=== PATIENT | female | born 1935 | race Hispanic/Latino ===

== ENCOUNTER 2017-11-19 10:01 | Inpatient (IN) | payer MEDICARE, BC ==
[2017-11-19 10:02] VITALS: BMI 42.9
--- NOTE | 2017-11-19 10:30 | ED PDOC ---
Arrival/HPI - General Chief Complaint: Weakness/Neurological Deficit Time Seen by Provider: 11/19/17 10:20 Historian: Patient - History of Present Illness Narrative History of Present Illness (Text): 11/19/17 10:20 A 82 year old female, whose past medical history includes 3-4 prior TIA and 1 cardiac stent, brought into the emergency department by EMS for right arm weakness since this morning. Patient reports she was awake watching TV at approximately 09:30 this morning when she felt mild weakness and numbness to her right distal forearm. Patient attempted to chicken picker an object from the floor but became alarmed when she was unable to. Upon arrival to the emergency room patient reported generalized weakness and lightheadedness. She notes taking 2 baby Aspirin priro to arrival. Patient denies any nausea, vomiting, diarrhea, abdominal pain, urinary or bowel changes, chest pain, palpitations shortness of breath, leg pain, headache, dizziness, speech changes, visual changes, hearing changes, taste abnormalities, facial numbness/tingling/weakness or any other complaints. pt is here for further eval pt's without other complaints Patients PMD is currently unknown. Patient use to be seen by Dr. Tony oliveira but he has not been in practice for some time now. Eeg Tech is Dr. Cabrera Patient is right hand dominant and lives alone Prior past medical history includes 3-4 TIA, 1 cardiac stent Time/Duration: Other (approximately 09:30 this morning) Symptom Onset: Sudden Symptom Course: Unchanged Activities at Onset: Rest Context: Home Past Medical History - Provider Review Nursing Documentation Reviewed: Yes - Travel History Have you recently traveled outside [place] w/in the past 3 mons?: No - Past History Past History: No Previous - Infectious Disease Hx of Infectious Diseases: None - Tetanus Immunization Tetanus Immunization: Unknown - Reproductive Menopause: Yes Currently : No - Cardiac Hx Cardiac Disorders: Yes (s/p stent) Hx Hypertension: Yes - Pulmonary Hx Respiratory Disorders: Yes Hx Pneumonia: Yes - Neurological HX Cerebrovascular Accident: Yes (x4) Hx Paralysis: No Hx Vertigo: Yes - HEENT Other/Comment: left eye infection last week - Renal Hx Renal Disorder: No - Endocrine/Metabolic Hx Endocrine Disorders: No - Hematological/Oncological Hx Blood Transfusions: No Hx Blood Transfusion Reaction: No - Integumentary Hx Dermatological Disorder: No - Musculoskeletal/Rheumatological Other/Comment: Dislocated hip 5x. Jacob knee and hip replacement - Gastrointestinal Hx Gastrointestinal Disorders: No - Genitourinary/Gynecological Hx Genitourinary Disorders: No - Psychiatric Hx Psychophysiologic Disorder: No Hx Substance Use: No - Surgical History Hx Coronary Stent: Yes Other/Comment: b/l hip replacement - Anesthesia Hx Anesthesia Reactions: Yes Hx Malignant Hyperthermia: No - Suicidal Assessment Feels Threatened In Home Enviroment: No Family/Social History - Physician Review Nursing Documentation Reviewed: Yes Family/Social History: No Known Family HX Smoking Status: Former Smoker Hx Alcohol Use: No Hx Substance Use: No Hx Substance Use Treatment: No Allergies/Home Meds Allergies/Adverse Reactions: Allergies morphine Allergy (Verified 11/19/17 10:08) ITCHING Home Medications: Home Meds Medication Instructions Recorded Confirmed Aspirin 325 mg PO DAILY 06/28/12 11/19/17 Metoprolol Succinate 25 mg PO BID 06/28/12 11/19/17 Simvastatin 40 mg PO DAILY 06/28/12 11/19/17 Meclizine HCl [Dramamine Less 25 mg PO DAILY 11/19/17 11/19/17 Drowsy] amLODIPine [Norvasc] 5 mg PO DAILY 11/19/17 11/19/17 Review of Systems - Physician Review All systems were reviewed & negative as marked: Yes - Review of Systems Constitutional: Other (generalized weakness) Eyes: absent: Vision Changes ENT: absent: Hearing Changes Respiratory: absent: SOB Cardiovascular: absent: Chest Pain, Palpitations, Calf Pain Gastrointestinal: absent: Abdominal Pain, Diarrhea, Nausea, Vomiting Genitourinary Female: absent: Urine Output Changes Musculoskeletal: absent: Normal Skin: absent: Normal Neurological: Other (right distal forearm weakness/numbness, lightheadedness). absent: Headache, Dizziness, Speech Changes, Facial Droop Endocrine: absent: Normal Hemo/Lymphatic: absent: Normal Psychiatric: absent: Normal Physical Exam - Physical Exam Narrative Physical Exam (Text): 11/19/17 12:04 General: alert/awake, GCS = 15, oriented x 3, resting in bed, +comfortable, cooperative, interactive; NAD Head: NC/AT EYE: PERRLA, EOMI, sclera anicteric, no nystagmus, no photophobia Facial: WNL Oral: uvula/tongue are midline, no exudate/lesions, no drooling/stridor, no dysphonia; intact dentitions NECK: intact ROM, no midline tenderness, no nuchal rigidity, no meningeal signs ; no step off Chest: CTA b/l, no w/r/r; no tachypenia, no accessory muscle use noted Cardiac: +S1, +S2, no m/r/r, no tachycardia Abdominal: +BS, soft/nd/nt, well nourished/obese patient; no masses/rebound/ guarding/rigidity; no reddy's sign, no mcburney's point tenderness Extremities: intact ROM, strength 5/5 grossly intact in all limbs except weaker on right distal arm (5-/5), neurovasc intact b/l; + ambulatory; reflex +2/2 BACK: no step off, no midline tenderness, NO crepitus, no gross deformities noted; Intact ROM SKIN: cap refill < 1 sec, no ulcerations, no petechiae, no rashes NEURO: CNII-XII WNL, no facial asymmetries, no slurr speech, oriented x 3 NIH stroke scale ~ 1 Psych: normal insight, normal affect; follows command with ease Vital Signs Reviewed: Yes Temperature: Afebrile Blood Pressure: Normal Pulse: Regular Respiratory Rate: Normal Appearance: Positive for: Well-Appearing, Non-Toxic, Comfortable. No: Ill- Appearing Pain Distress: None Mental Status: Positive for: Alert and Oriented X 3 - Systems Exam Head: Present: Atraumatic, Normocephalic Medical Decision Making ED Course and Treatment: 11/19/17 10:20 Impression: A 82 year old female brought in for right distal forearm weakness and numbness. Patient notes generalized weakness and lightheadedness. Hx of multiple TIAs R/O TIA vs CVA Plan: -- Head CTA -- Head CT -- Chest xray -- EKG -- Labs -- IV fluids -- Reassess and disposition Progress Notes: Code alert activated at 10:16 11/19/17 10:28 Case discussed with neurologist Dr. Cisneros; made aware, would like to follow up on the Ct head results; due to pt's low NIH stroke score level and isolated weakness, pt likely is NOT a candidate for tPA, as per Dr Cisneros, will continue to monitor 11:20am - with negative CT head, pt's symptoms appears to be slightly improving 11:30am - I spoke to Dr Cisneros, made aware of pt's ct results and with her improving right arm symptoms, PT IS NOT A CANDIDATE for tPA at the current time. Dr Cisneros recommends plavix 300mg x 1, permissive Hypertension, and NS IVF at 100cc/hr, MRI as well 11:45am - I spoke to Dr Elliott, guest relations associate PCP, made aware, agrees with admission 11/19/17 1150am pt is made aware of her medical results pt agrees with admission Re-evaluation Time: 11:36 Reassessment Condition: Improving,but remains with symptoms - Critical Care Critical Care Minutes: 45 minutes Critical Care Time: Excluding Proc Time Narrative Critical Care (Text): 11/19/17 11:36 critical care time: 45min, excluding procedure time, excluding time teaching residents/students/mid-level providers; including initial eval/diagnosis, diagnostic interpretation, re-eval, consultations, final disposition - Lab Interpretations Lab Results: 11/19/17 10:24 11/19/17 10:24 Lab Results 11/19/17 10:24: Sodium 141, Potassium 4.7, Chloride 108 H, Carbon Dioxide 22, Anion Gap 16, BUN 18, Creatinine 0.8, Est GFR ( Amer) > 60, Est GFR (Non- Af Amer) > 60, Random Glucose 116 H, Calcium 9.1, Total Bilirubin 0.6, AST 18, ALT 20, Alkaline Phosphatase 77, Troponin I < 0.01, Total Protein 7.0, Albumin 3.9, Globulin 3.1, Albumin/Globulin Ratio 1.3, Triglycerides 130, Cholesterol 153, LDL Cholesterol Direct 69, HDL Cholesterol 61 H 11/19/17 10:24: WBC 9.5, RBC 4.55, Hgb 13.1, Hct 39.9, MCV 87.7, MCH 28.8, MCHC 32.8, RDW 14.5, Plt Count 225, MPV 9.6, Gran % 64.5, Lymph % (Auto) 22.0, Mcminn % (Auto) 10.4 H, Eos % (Auto) 2.8, Baso % (Auto) 0.3, Gran # 6.10, Lymph # (Auto ) 2.1, [place]minn # (Auto) 1.0 H, Eos # (Auto) 0.3, Baso # (Auto) 0.03 I have reviewed the lab results: Yes Interpretation: All labs normal - RAD Interpretation Narrative RAD Interpretations (Text): Report Date : 11/19/2017 11:01:19 PROCEDURE: CT HEAD WITHOUT CONTRAST. Dictator : Dimitrios Rojo MD IMPRESSION: No acute findings Report Date : 11/19/2017 11:08:56 Dictator : Dimitrios Rojo MD PROCEDURE: CT Angiography of the neck with contrast IMPRESSION: No significant stenosis. Tortuosity of the internal carotid. Minimal calcified plaque bilaterally PROCEDURE: CT Angiography of the Brain. IMPRESSION: Unremarkable CT Angiography of the Brain. Report Date : 11/19/2017 11:10:02 PROCEDURE: Chest xray Dictator : Dimitrios Rojo MD IMPRESSION: No active disease. Radiology Orders: 11/19/17 10:21 CTA HEAD/NECK CODE STROKE [CT] Stat HEAD W/O (CODE STROKE) [CT] Stat CHEST PORTABLE [RAD] Stat Scientologist: Radiologist - EKG Interpretation EKG Interpretation (Text): 11/19/17 11:38 Sinus margo at 55 bpm, LAD, + ectoy, inverted T In leads III, no st changes, ABNL EKG; unchanged compare with old ekg 09/2014 Interpreted by ED Physician: Yes Type: 12 lead EKG Comparison: Similar to previous EKG - Medication Orders Current Medication Orders: Sodium Chloride (Sodium Chloride 0.9%) 1,000 mls @ 100 mls/hr IV .Q10H MARKIE Discontinued Medications Clopidogrel Bisulfate (Plavix) 300 mg PO STAT STA Stop: 11/19/17 11:36 NIHSS Scale (Goodwin) Time Performed: 10:15 - How Severe is the Stoke Baseline Level of Consciousness: 0=Alert LOC to Questions: 0=Both comments correct LOC to commands: 0=Obeys both correctly Best Gaze: 0=Normal Visual: 0=No visual loss Facial: 0=Normal Motor Arm - Left: 0=No drift Motor Arm - Right: 1=Drift noted before 10 sec Motor Leg - Left: 0=No drift Motor Leg - Right: 0=No drift Limb Ataxia: 0=Absent Sensory: 0=Normal Best Language: 0=No aphasia Dysarthia: 0=Normal articulation Extinction & Inattention (Neglect): 0=Normal, no object Score: 1 Risk Level: Minor Stroke Risk - Scribe Statement The provider has reviewed the documentation as recorded by the Hermannibsparkle Smith Provider Scribe Attestation: All medical record entries made by the Scribe were at my direction and personally dictated by me. I have reviewed the chart and agree that the record accurately reflects my personal performance of the history, physical exam, medical decision making, and the department course for this patient. I have also personally directed, reviewed, and agree with the discharge instructions and disposition. Disposition/Present on Arrival - Present on Arrival Any Indicators Present on Arrival: No History of DVT/PE: No History of Uncontrolled Diabetes: No Urinary Catheter: No History of Decub. Ulcer: No History Surgical Site Infection Following: None - Disposition Have Diagnosis and Disposition been Completed?: Yes Diagnosis: Right arm weakness, TIA (transient ischemic attack) Disposition: HOSPITALIZED Disposition Time: 11:45 Patient Plan: Admission, Telemetry Condition: STABLE Forms: [employer] (Spanish)
[2017-11-19 10:36] LABS: BASO # 0.03 K/mm3 (0.0-2.0); BASO % 0.3 % (0.0-3.0); EOS # 0.3 (0.0-0.7); EOS % 2.8 % (1.5-5.0); GRAN # 6.1 (1.4-6.5); GRAN % 64.5 % (50.0-68.0); HEMOGLOBIN 13.1 g/dL (12.0-16.0); LYMPH # 2.1 (1.2-3.4); MEAN CELL VOLUME 87.7 fl (80.0-105.0); MEAN CORPUSCULAR HEMOGLOBIN 28.8 pg (25.0-35.0); MEAN CORPUSCULAR HGB CONC 32.8 g/dl (31.0-37.0); MEAN PLATELET VOLUME 9.6 fl (7.0-11.0); MONO % 10.4 % (1.0-6.0); RBC 4.55 10^6/uL (3.5-6.1); RED CELL DISTRIBUTION WIDTH 14.5 % (11.5-14.5); WHITE BLOOD COUNT 9.5 10^3/ul (4.5-11.0)
--- NOTE | 2017-11-19 10:42 | CP.PCM.CON ---
<Kate Gabriel - Last Filed: 11/19/17 15:11> History of Present Illness - History of Present Illness History of Present Illness: Neuro Consult Note for Dr. Cisneros Reason for consult: "right arm weakness r/o TIA vs CVA" 82yo female PMHx CAD with stent, CVA 3 years ago and multiple TIAs, HTN, and HLD presents with right hand numbness and decreased strength for 3-4 hours. Patient reports she woke up on the morning of presentation and was having lower back pain and decided against going to physical therapy that day. (Patient goes to PT 3x/week for back pain). She reported she placed a heating pad on her back and sat down to watch TV but when she felt mild weakness and numbness to her right distal forearm. Patient attempted to berry picker an object from the floor but was alarmed when she was unable to. Upon arrival to the emergency room patient reported generalized weakness and lightheadedness. She notes taking 2 baby Aspirin prior to arrival. She reported that even in the ER although her weakness had improved she still felt like she had decreased strength and that her hand wasn't right. She admitted to some lightheadedness at the time of the event but denied any headache, dizziness, chest pain, palpitations, SOB, cough, abd pain, nausea, vomiting, bowel/bladder complaints, pain/swelling in her legs b/l. She denied any recent travel/sick contacts. PMHx: CVA and multiple TIAs, HTN, CAD with stent, HLD PSurgHx: b/l knee replacement, b/l hip replacement, meniscus repair, elbow surgery, cardiac stent 6-8 years ago Meds: pls see chart ALL: morphine FamHx: father renal cell ca; no hx of CVA or OR SocHx: lives alone- denies hx of tobacco abuse, drug abuse, alcohol abuse PMD: Dr. Pat [last seen 2 years [facility]] Neurologist: none Structural Engineer: Dr. Cabrera Review of Systems - Review of Systems All systems: reviewed and no additional remarkable complaints except Review of Systems: as per HPI Past Patient History - Tetanus Immunizations Tetanus Immunization: Unknown - Past Social History Smoking Status: Former Smoker - CARDIAC Hx Cardiac Disorders: Yes (s/p stent) Hx Hypertension: Yes - PULMONARY Hx Respiratory Disorders: Yes Hx Pneumonia: Yes - NEUROLOGICAL HX Cerebrovascular Accident: Yes (x4) Hx Paralysis: No Hx Vertigo: Yes - HEENT Other/Comment: left eye infection last week - RENAL Hx Chronic Kidney Disease: No - ENDOCRINE/METABOLIC Hx Endocrine Disorders: No - HEMATOLOGICAL/ONCOLOGICAL Hx Blood Transfusions: No Hx Blood Transfusion Reaction: No - INTEGUMENTARY Hx Dermatological Problems: No - MUSCULOSKELETAL/RHEUMATOLOGICAL Other/Comment: Dislocated hip 5x. Jacob knee and hip replacement - GASTROINTESTINAL Hx Gastrointestinal Disorders: No - GENITOURINARY/GYNECOLOGICAL Hx Genitourinary Disorders: No - PSYCHIATRIC Hx Psychophysiologic Disorder: No Hx Substance Use: No - SURGICAL HISTORY Hx Coronary Stent: Yes Other/Comment: b/l hip replacement - ANESTHESIA Hx Anesthesia Reactions: Yes Hx Malignant Hyperthermia: No Meds Allergies/Adverse Reactions: Allergies Allergy/AdvReac Type Severity Reaction Status Date / Time morphine Allergy ITCHING Verified 11/19/17 10:08 - Medications Medications: Current Medications Sodium Chloride (Sodium Chloride 0.9%) 1,000 mls @ 100 mls/hr IV .Q10H MARKIE Physical Exam - Constitutional Appears: Non-toxic, No Acute Distress - Head Exam Head Exam: ATRAUMATIC, NORMAL INSPECTION, NORMOCEPHALIC - Eye Exam Eye Exam: EOMI, Normal appearance, PERRL. absent: Conjunctival injection, Scleral icterus Pupil Exam: NORMAL ACCOMODATION - ENT Exam ENT Exam: Mucous Membranes Moist - Neck Exam Neck exam: Positive for: Full Rom - Respiratory Exam Respiratory Exam: NORMAL BREATHING PATTERN. absent: Accessory Muscle Use, Respiratory Distress - Cardiovascular Exam Cardiovascular Exam: +S1, +S2 - Rectal Exam Rectal Exam: Deferred - Extremities Exam Extremities exam: Positive for: pedal edema (+1 b/l) - Neurological Exam Neurological exam: Alert, CN II-XII Intact, Oriented x3 - Expanded Neurological Exam Expanded Neurological exam: Protecting the Airway Speech: Fluid Speech Cranial nerves: EOM's Intact: Normal, Facial Palsey w/Forehead Movement: Normal , Facial Palsey w/o Forehead Movement: Normal, Facial Sensation: Normal, Gag Reflex: Normal, Nystagmus: Normal, Tongue Deviation: Normal Ataxia: No Cerebellar Function: Finger to Nose: Normal Upper motor neuron: Babinski Sign: Normal, Dylan Neglect: Normal, Pronator Drift : Normal, Sensory Extinction: Normal Neuro motor strength exam: Left Upper Extremity: 5, Right Upper Extremity: 5, Left Lower Extremity: 5, Right Lower Extremity: 5 Coma Scale Eye Opening: SPONTANEOUS Coma Scale Motor Response: OBEYS COMMANDS Coma Scale Verbal: Oriented Coma Scale Total: 15 - Psychiatric Exam Psychiatric exam: Normal Affect, Normal Mood - Skin Skin Exam: Dry, Intact Results - Labs Result Diagrams: 11/19/17 10:24 11/19/17 10:24 Labs: Laboratory Results - last 24 hr 11/19/17 10:24 WBC 9.5 RBC 4.55 Hgb 13.1 Hct 39.9 MCV 87.7 MCH 28.8 MCHC 32.8 RDW 14.5 Plt Count 225 MPV 9.6 Gran % 64.5 Lymph % (Auto) 22.0 [place] % (Auto) 10.4 H Eos % (Auto) 2.8 Baso % (Auto) 0.3 Gran # 6.10 Lymph # (Auto) 2.1 [place] # (Auto) 1.0 H Eos # (Auto) 0.3 Baso # (Auto) 0.03 Assessment & Plan - Assessment and Plan (Free Text) Assessment: 82yo female PMHx CAD with stent, CVA 3 years ago and multiple TIAs, HTN, and HLD presents with right hand numbness and decreased strength for 3-4 hours. Plan: -f/u MRI brain -f/u Echo with bubble -Head CT: unremarkable -CTA head/neck: unremarkable -ASA 81 and Plavix 75 for 21 days after which patient will be on only Plavix 75mg qdaily -PT/OT -continue management as per primary Discussed with Dr. Blayne Gabriel PGY2 <Robert Cisneros - Last Filed: 11/19/17 17:07> Meds - Medications Medications: Current Medications Amlodipine Besylate (Norvasc) 5 mg PO DAILY MARKIE Aspirin (Aspirin Chewable) 81 mg PO DAILY MARKIE Atorvastatin Calcium (Lipitor) 40 mg PO HS MARKIE Clopidogrel Bisulfate (Plavix) 75 mg PO DAILY [facility] Sodium Chloride (Sodium Chloride 0.9%) 1,000 mls @ 100 mls/hr IV .Q10H MARKIE Last Admin: 11/19/17 15:04 Dose: 100 mls/hr Metoprolol Tartrate (Lopressor) 25 mg PO BID [facility] Results - Vital Signs Recent Vital Signs: Last Vital Signs Temp 98 F 11/19/17 15:54 Pulse 50 L 11/19/17 15:54 Resp 18 11/19/17 15:54 BP 148/79 11/19/17 15:54 Pulse Ox 96 11/19/17 15:36 - Labs Result Diagrams: 11/19/17 10:24 11/19/17 10:24 Labs: Laboratory Results - last 24 hr 11/19/17 11/19/17 11/19/17 12:00 12:30 13:58 PT 11.5 INR 1.00 APTT 28.0 Thyroxine (T4) 10.3 Blood Type B POSITIVE Antibody Screen Negative BBK History Checked No verified bt Attending/Attestation - Attestation I have personally seen and examined this patient.: Yes I have fully participated in the care of the patient.: Yes I have reviewed all pertinent clinical information: Yes
[2017-11-19 10:44] LABS: ALB/GLOB RATIO 1.3 (1.1-1.8); ALBUMIN 3.9 g/dL (3.0-4.8); CALCIUM 9.1 mg/dL (8.4-10.5); GFR AFRICAN-AMERICAN > 60; GFR NON-AFRICAN AMERICAN > 60; HDL CHOLESTEROL 61 mg/dL (29-60)
[2017-11-19 10:49] LABS: ALT/SGPT 20 U/L (7-56); AST/SGOT 18 U/L (14-36); BLOOD UREA NITROGEN 18 mg/dL (7-21)
[2017-11-19 10:55] LABS: TROPONIN I < 0.01 ng/mL
[2017-11-19 10:56] LABS: LDL CHOLESTEROL 69 mg/dL (0-129)
--- NOTE | 2017-11-19 11:03 | CT ---
PROCEDURE: CT HEAD WITHOUT CONTRAST. HISTORY: Code Stroke COMPARISON: None available. TECHNIQUE: Axial computed tomography images were obtained through the head/brain without intravenous contrast. Radiation dose: Total exam DLP = 889 mGy-cm. This CT exam was performed using one or more of the following dose reduction techniques: Automated exposure control, adjustment of the mA and/or kV according to patient size, and/or use of iterative reconstruction technique. FINDINGS: HEMORRHAGE: No intracranial hemorrhage. BRAIN: No mass effect or edema. Chronic microvascular changes are seen in the periventricular white matter. There are no acute findings VENTRICLES: Unremarkable. No hydrocephalus. CALVARIUM: Unremarkable. PARANASAL SINUSES: Unremarkable as visualized. No significant inflammatory changes. MASTOID AIR CELLS: Unremarkable as visualized. No inflammatory changes. OTHER FINDINGS: None. IMPRESSION: No acute findings
--- NOTE | 2017-11-19 11:10 | CT ---
PROCEDURE: CT Angiography of the neck with contrast HISTORY: right arm weakness since 930am COMPARISON: Noncontrast head CT earlier same day TECHNIQUE: Contiguous axial images of the neck were obtained from the level of the skull-base to the superior mediastinum in the arteriographic phase of enhancement. Coronal and sagittal reformats or also generated. IV contrast dose: 150 cc of Omni 350 Radiation Dose - DLP: 615 mGy-cm This CT exam was performed using one or more of the following dose reduction techniques: Automated exposure control, adjustment of the mA and/or kV according to patient size, and/or use of iterative reconstruction technique. FINDINGS: RIGHT CAROTID ARTERIES: There is tortuosity of the internal carotid. There is no significant stenosis. Minimal calcified plaque LEFT CAROTID ARTERIES: No significant stenosis. Tortuosity of the internal carotid. Minimal calcified plaque VERTEBRAL ARTERIES: Right Vertebral Artery: Normal. Left Vertebral Artery: Normal. OTHER FINDINGS: None. IMPRESSION: No significant stenosis. Tortuosity of the internal carotid. Minimal calcified plaque bilaterally CT Angiography of the Brain. HISTORY: right arm weakness since 930am COMPARISON: None available. TECHNIQUE: CT angiography of the intracranial arteries was performed. Coronal and sagittal maximum intensity projection reformated images were generated. This CT exam was performed using one or more of the following dose reduction techniques: Automated exposure control, adjustment of the mA and/or kV according to patient size, and/or use of iterative reconstruction technique. FINDINGS: INTERNAL CEREBRAL ARTERIES: Unremarkable. The skull base, petrous, cavernous and supraclinoid segments are bilaterally widely patent. ANTERIOR CEREBRAL ARTERIES: Unremarkable. A1 and A2 segments are widely patent. Smaller distal branches unremarkable, as visualized. MIDDLE CEREBRAL ARTERIES: Unremarkable. M1 and M2 segments are widely patent. Perisylvian branches grossly symmetric. POSTERIOR CIRCULATION: Basilar Artery: Unremarkable. Distal Vertebral Arteries: Unremarkable. Posterior Cerebral Arteries: Unremarkable. Posterior Inferior Cerebellar Arteries: Unremarkable. ANEURYSM/ VASCULAR MALFORMATIONS: None. OTHER FINDINGS: None. IMPRESSION: Unremarkable CT Angiography of the Brain.
--- NOTE | 2017-11-19 11:11 | RAD ---
HISTORY: Code Stroke COMPARISON: 10/12/2014 FINDINGS: LUNGS: No active pulmonary disease. PLEURA: No significant pleural effusion identified, no pneumothorax apparent. CARDIOVASCULAR: Normal. OSSEOUS STRUCTURES: No significant abnormalities. VISUALIZED UPPER ABDOMEN: Normal. OTHER FINDINGS: None. IMPRESSION: No active disease.
[2017-11-19 12:26] LABS: PROTHROMBIN TIME 11.5 SECONDS (9.4-12.5)
[2017-11-19] MEDS: Sodium Chloride 0.9% 1,000 ML IV SCH ×2 (15:04→21:30)
--- NOTE | 2017-11-19 15:57 | CARD ---
APPROVED REPORT EXAM: Two-dimensional and M-mode echocardiogram with Doppler and color Doppler. INDICATION CVA/TIA BUBBLE STUDY TO R/O PFO 2D DIMENSIONS Left Atrium (2D)4.9 (1.6-4.0cm)IVSd1.2 (0.7-1.1cm) LVDd4.5 (3.9-5.9cm)PWd1.1 (0.7-1.1cm) LVDs3.0 (2.5-4.0cm)FS (%) 33.7 % LVEF (%)62.6 (>50%) M-Mode DIMENSIONS Aortic Root3.30 (2.2-3.7cm)Aortic Cusp Exc.1.80 (1.5-2.0cm) Aortic Valve AoV Peak Qwhbmdfe679.0cm/sAoV VTI42.5cmAO Peak GR.13mmHg LVOT Peak Mkwbsbao813.0cm/sLVOT VTI37.90cmAO Mean GR.7mmHg Mitral Valve MV E Ajelltia34.5cm/sMV A Yeeijgff02.3cm/sE/A ratio0.8 TDI Lateral E' Peak V8.77cm/sMedial E' Peak V6.92cm/sE/Lateral E'8.8 E/Medial E'11.2 Pulmonary Valve PV Peak Jpnmrhhz54.4cm/sPV Peak Grad.3mmHg Tricuspid Valve TR Peak Wzjaucmj993fc/sRAP BLDAOVMN80opUnCC Peak Gr.34mmHg [id number] LEFT VENTRICLE The left ventricle is normal size. There is normal left ventricular wall thickness. The left ventricular function is normal. The left ventricular ejection fraction is within the normal range. There is normal LV segmental wall motion. Transmitral Doppler flow pattern is Grade I-abnormal relaxation pattern. RIGHT VENTRICLE The right ventricle is normal size. There is normal right ventricular wall thickness. The right ventricular systolic function is normal. ATRIA The left atrium is mildly dilated. The right atrium size is normal. a small PFO noted on color doppler images AORTIC VALVE The aortic valve is moderately thickened. No aortic regurgitation is present. MITRAL VALVE The mitral valve is mildly thickened. Mitral regurgitation is trace. There is no mitral valve stenosis. TRICUSPID VALVE There is mild to moderate tricuspid regurgitation. There is mild to moderate pulmonary hypertension. GREAT VESSELS The aortic root is normal in size. PERICARDIAL EFFUSION There is a trace loculated anterior pericardial effusion. <Conclusion> The left ventricle is normal size. There is normal left ventricular wall thickness. The left ventricular function is normal. The left ventricular ejection fraction is within the normal range. There is normal LV segmental wall motion. Transmitral Doppler flow pattern is Grade I-abnormal relaxation pattern. There is mild to moderate tricuspid regurgitation. There is mild to moderate pulmonary hypertension. a small PFO noted on color doppler images
[2017-11-19] MEDS ORDERED: Pneumococcal 23-Valent Vaccine IM ONE (16:30)
--- NOTE | 2017-11-19 18:54 | CARD ---
APPROVED REPORT EKG Measurement Heart [id number] <Conclusion> Sinus bradycardia with marked sinus arrhythmia Left axis deviation Abnormal ECG
--- NOTE | 2017-11-20 01:27 | HP ---
DATE OF EXAM: 11/19/2017 HISTORY OF PRESENT ILLNESS: This 82-year-old female was examined at her bedside in the emergency room and this case was reviewed in detail with herself and emergency room physician, Dr. Basil Brown. The patient presented earlier today complaining of a right forearm and hand numbness and weakness. She was watching TV, she went to pick up man an item, she was unable to grasp it completely and immediately swallowed 2 baby aspirins after having taken her Ecotrin 325 mg earlier in the morning. She presented to the [facility] ER where concerns of a TIA versus CVA were raised. She underwent workup including chest x-ray, EKG, head CT and head and neck CTA, all unremarkable for evidence of acute stroke. Chest x-ray showed no obvious pneumonia, infiltrate or congestive heart failure and her electrocardiogram was reviewed and showed sinus arrhythmia with nonspecific ST-T wave changes. The patient is being admitted for complaints of the above. OUTPATIENT MEDICATIONS: Included Norvasc, Zocor, metoprolol and aspirin. ALLERGIES: PATIENT DENIES ALLERGIES TO MEDICATION EXCEPT FOR MORPHINE, WHICH CAUSES HIVES. PAST SURGICAL HISTORY: She is status post hip and knee surgeries and has a cardiac stent. FAMILY HISTORY: Noncontributory. SOCIAL HISTORY: She admits to being a three pack per day cigarette smoker for over 20 years, but denies alcohol abuse nor IV drug misuse or abuse. She is a retired clerical worker. PHYSICAL EXAMINATION: VITAL SIGNS: She was in a normal sinus rhythm on the hall monitor. Temperature 98, respirations 18, pulse 53 and blood pressure 148/79 with a pulse ox of 97% on room air. HEENT: Head, normocephalic and atraumatic. Eyes, no icterus. Ears, clear. Throat, noninjected. NECK: Supple. HEART: Was regular S1, S2. No pathological rubs, murmurs or gallops. LUNGS: Were clear to auscultation. ABDOMEN: Soft, nontender without rebound without guarding. No tenderness. EXTREMITIES: She had 1+ pedal edema bilaterally. SKIN: Without ulcer. VASCULAR: Legs warm to touch. PSYCHOLOGIC: Alert and oriented x3. NEUROLOGIC: At presently, motor strength is 5/5 throughout including her right hand program lead and right arm motor strength exam. LABORATORY DATA: White count 9500, hemoglobin 13.1, hematocrit 39.9, platelets 225,000. PT/INR 1, PTT 28. Sodium 141, K 4.7, chloride 108, bicarb 22, BUN 18, creatinine 0.8, random blood sugar 116. Hemoglobin A1c 6.4. All liver function testing normal including bilirubin 0.6, AST 18, ALT 20 and alk phos 77. Troponin was less than 0.01. Cholesterol 153, LDL 69, HDL 61 and triglycerides 130. T4 of 10.3, normal. Chest x-ray was reviewed, no infiltrate, no CHF, no effusion, no pneumothorax. EKG was reviewed, normal sinus rhythm with sinus arrhythmia and nonspecific ST-T wave changes. Head CT was reviewed, no evidence of acute stroke or intracranial hemorrhage. Head and neck CTA was reviewed, it showed no evidence of carotid artery stenosis. IMPRESSION: An 82-year-old female with recurrent transient ischemic attack with history of old transient ischemic attack in the past, chronic hypertension, obesity, hyperlipidemia and coronary artery stenting. PLAN: The plan at present is to admit this patient to the cardiac unit. I have ordered an echocardiogram with bubble study to evaluate cardiac wall motion, cardiac valve status and to rule out intracardiac septal deformity. She will be scheduled for an MRI of the brain without contrast and is awaiting a neurological consultation by Dr. Robert Cisneros, neurologist. The patient will be ordered to receive Lipitor 40 mg p.o. at bedtime, Lopressor 25 mg p.o. b.i.d., Norvasc 5 mg p.o. daily, Plavix 75 mg p.o. daily and 0.9 saline at 100 mL per hour for the next 10 hours. She has been placed on a heart-healthy soft bland diet. She will have Neuro checks every shift. She is ordered to have physical therapy for reconditioning and gait training, and additional testing and medications will be ordered based on her clinical progress and results of the above. Greater than 75 minutes was spent in the care management, review of labs, orders and x-rays, examination and discussion of this patient's case with herself, nursing, emergency room physician and cardiac unit nurses. All questions were answered. Shayla Elliott MD [facility] # [id number] MTDD
[2017-11-20] MEDS ORDERED: DiphenhydrAMINE 12.5 mg/5 ml LIQ UD (5 ml) PO STA (02:19)
--- NOTE | 2017-11-20 02:24 | CP.PCM.PN ---
Subjective - Date & Time of Evaluation Date of Evaluation: 11/20/17 Time of Evaluation: 02:20 - Subjective Subjective: S:Requests a sleeping pill. Has no other complaints now. Medical record was reviewed. O: Last Vital Signs 3 Temp 97.8 F 11/20/17 00:00 Pulse 52 L 11/20/17 00:00 Resp 20 11/20/17 00:00 BP 142/99 H 11/20/17 00:05 Pulse Ox 96 11/20/17 00:00 Awake, alert , not in distress. LUNGS:Normal breathing pattern. NEURO:Speech normal. A:Adjustment Insomnia. P:Benadryl 25 mg PO x 1. Objective - Vital Signs/Intake and Output Vital Signs (last 24 hours): Temp Pulse Resp BP Pulse Ox 97.8 F 52 L 20 142/99 H 96 11/20/17 00:00 11/20/17 00:00 11/20/17 00:00 11/20/17 00:05 11/20/17 00:00 - Medications Medications: Current Medications Amlodipine Besylate (Norvasc) 5 mg PO DAILY [facility] Aspirin (Aspirin Chewable) 81 mg PO DAILY [facility] Atorvastatin Calcium (Lipitor) 40 mg PO HS [facility] Last Admin: 11/19/17 21:26 Dose: 40 mg Clopidogrel Bisulfate (Plavix) 75 mg PO DAILY [facility] Diazepam (Valium) 2 mg PO ONCE PRN; Protocol PRN Reason: Anxiety Stop: 11/20/17 23:59 Sodium Chloride (Sodium Chloride 0.9%) 1,000 mls @ 100 mls/hr IV .Q10H [facility] Last Admin: 11/19/17 21:30 Dose: Not Given Metoprolol Tartrate (Lopressor) 25 mg PO BID [facility] Last Admin: 11/19/17 18:28 Dose: Not Given - Labs Labs: PT 11.5 SECONDS (9.4-12.5) 11/19/17 12:00 INR 1.00 (0.93-1.08) 11/19/17 12:00 APTT 28.0 Seconds (25.1-36.5) 11/19/17 12:00
[2017-11-20 07:34] LABS: HDL CHOLESTEROL 65 mg/dL (29-60)
[2017-11-20 07:45] LABS: LDL CHOLESTEROL 73 mg/dL (0-129)
[2017-11-20] MEDS ORDERED: Aspirin 325 mg EC Tablets PO SCH (10:00)
[2017-11-20] MEDS: Sodium Chloride 0.9% 1,000 ML IV SCH ×2 (10:48→18:35)
--- NOTE | 2017-11-20 14:07 | MRI ---
PROCEDURE: MRI BRAIN WITHOUT CONTRAST HISTORY: TIA COMPARISON: Comparison made with CT scan and CTA brain both dated 11/19/2017 TECHNIQUE: Multiplanar, multisequence MR images of the brain were obtained without intravenous contrast enhancement. FINDINGS: HEMORRHAGE: No acute parenchymal, subarachnoid nor extra-axial hemorrhage. No evidence of hemosiderin deposition identified on gradient echo weighted sequence. DWI: There are several tiny focal areas of restricted diffusion seen along the left pre and post central cortex consistent with tiny acute/subacute infarcts. BRAIN PARENCHYMA: Moderate diffuse and confluent chronic periventricular white matter ischemic changes seen extending peripherally into the deep and subcortical white matter both cerebral hemispheres. In addition, there are the multiple more discrete chronic appearing lacunar type infarcts scattered about the deep and subcortical white matter and both basal nuclei. None these additional changes exhibit restricted diffusion. No obvious parenchymal nor extra-axial mass or collection seen on this noncontrast study. The mild to moderate generalized volume loss. VENTRICLES: No obstructive hydrocephalus. CRANIUM: No acute calvarial abnormalities ORBITS: Orbits and contents grossly unremarkable PARANASAL SINUSES/MASTOIDS: Re- demonstrated is underpneumatized of hypoplastic appearing frontal sinus. The remaining visualized paranasal sinuses are otherwise relatively well-developed and clear VASCULAR SYSTEM: Visualized major vascular flow voids at skull base patent. OTHER FINDINGS: None. IMPRESSION: No acute intracranial hemorrhage. There are a few tiny acute/subacute infarcts superior frontoparietal cortex as described. Note that 2 [address] Nurse Darnell in the informed these findings at 1:56 TIA. p.m. with written down and read back verification. Moderate chronic white matter ischemic changes with a few scattered small chronic bilateral basal nuclei lacunar type infarcts . Mild generalized volume loss.
--- NOTE | 2017-11-20 21:58 | PN ---
DATE: 11/20/2017 SUBJECTIVE: This 82-year-old female was examined on the cardiac yo. This was done in the presence of her nurse, Erika Levi, registered nurse. The patient complains of numbness in her right hand, but motor strength is 5/5. Recent admission CAT scan shows no evidence of infarct or hemorrhage. Brain MRI is pending. 2-D echocardiogram showed a small PFO. Neurological evaluation is pending regarding this finding. PHYSICAL EXAMINATION: VITAL SIGNS: shelter monitor shows normal sinus rhythm, temperature is 98.4, respirations 21, pulse 50, blood pressure 142/69. Pulse ox 96% on room air. HEENT: Head normocephalic, atraumatic. Eyes: No icterus. Ears: Clear. Throat: Noninjected. NECK: Supple. HEART: Regular S1 and S2. LUNGS: Clear. ABDOMEN: Soft. EXTREMITIES: No edema. SKIN: Without rash. NEUROLOGICAL: Grossly intact. PSYCHOLOGICAL: Alert and oriented x3. VASCULAR: Legs warm to touch. LABORATORY DATA: White count 9500, hemoglobin 13.1, hematocrit 39.9, platelets 225,000. PT/INR 1, PTT 28. Sodium 141, potassium 4.7, chloride 108, bicarb 22, BUN 18, creatinine 0.8, random blood sugar 116. Hemoglobin A1c 6.4. Cholesterol 169, triglycerides 137, LDL 73, HDL 64. T4 normal, 10.3. IMPRESSION: An 82-year-old female with a TIA, rule out CVA, with presentation of right hand numbness in a woman with previous history of TIAs, chronic hypertension, hyperlipidemia, degenerative arthritis and obesity. PLAN: The plan at present is to continue Ecotrin 81 mg p.o. daily, Lipitor 40 mg p.o. at bedtime, Lopressor 25 mg b.i.d., Norvasc 5 mg p.o. daily, Plavix 75 mg daily, 0.9 saline at 100 mL/hour, and she is ordered to be premedicated with Valium 2 mg p.o. x1 dose pre-MRI. As discussed with the patient and nursing, I will await neurology reevaluation by Dr. Robert Cisneros, and have asked him to discuss the patient's echocardiogram finding of a small patent foramen ovale, and if this necessitates adjustment of anticoagulation from Plavix to possibly Coumadin. We will await the results of her brain MRI and make further changes based on the above. Greater than 35 minutes was spent in the care management, review of labs, orders, x-rays, and discussion of this patient's case with herself and nursing. All questions were answered. Shayla Elliott MD MTDD
[2017-11-21] MEDS: Sodium Chloride 0.9% 1,000 ML IV SCH (03:50)
--- NOTE | 2017-11-21 07:12 | CP.PCM.PN ---
Subjective - Date & Time of Evaluation Date of Evaluation: 11/21/17 Time of Evaluation: 07:05 - Subjective Subjective: Ms. Mandel was seen and examined at the bedside. She is alert, oriented in all spheres. She denies any headache, dizziness, lightheadedness. She is able to follow simple commands with right side slightly weaker than the left. She is able to transfer herself from bed to bedside chair. She has lower extremities edema, pitting since patient has been sitting most of the night. MRI of the brain showed no acute intracranial hemorrhage. There is a few tiny acute/ subacute infarcts superiro frontoparietal cortex . Moderate chronic white matter ischemic changes with few scattered small chronic bilateral basal nuclei lacunar type infarct. Mild generalized volume loss. Echocardiogram showed LV size, LV wall thickness, LV ventricular function , EF, LV segmental wall motion are all normal. There is a mild to moderate tricuspid regurgitation, mild to moderate pulmonary hypertension, and a small PFO noted. There was no untoward events overnight. Objective - Vital Signs/Intake and Output Vital Signs (last 24 hours): Temp Pulse Resp BP Pulse Ox 98.3 F 49 L 20 148/70 94 L 11/21/17 06:00 11/21/17 06:00 11/21/17 06:00 11/21/17 06:00 11/21/17 06:00 Intake and Output: 11/21/17 11/21/17 06:59 18:59 Intake Total 477 Balance 477 - Medications Medications: Current Medications Amlodipine Besylate (Norvasc) 5 mg PO DAILY [facility] Last Admin: 11/20/17 10:48 Dose: 5 mg Aspirin (Aspirin Chewable) 81 mg PO DAILY [facility] Last Admin: 11/20/17 10:48 Dose: 81 mg Atorvastatin Calcium (Lipitor) 40 mg PO HS [facility] Last Admin: 11/20/17 21:56 Dose: 40 mg Clopidogrel Bisulfate (Plavix) 75 mg PO DAILY [facility] Last Admin: 11/20/17 10:48 Dose: 75 mg Sodium Chloride (Sodium Chloride 0.9%) 1,000 mls @ 100 mls/hr IV .Q10H [facility] Last Admin: 11/21/17 03:50 Dose: Not Given Metoprolol Tartrate (Lopressor) 25 mg PO BID [facility] Last Admin: 11/20/17 17:59 Dose: 25 mg Zolpidem Tartrate (Ambien) 5 mg PO HS PRN; Protocol PRN Reason: Insomnia Last Admin: 11/20/17 21:56 Dose: 5 mg - Labs Labs: PT 11.5 SECONDS (9.4-12.5) 11/19/17 12:00 INR 1.00 (0.93-1.08) 11/19/17 12:00 APTT 28.0 Seconds (25.1-36.5) 11/19/17 12:00 - Constitutional Appears: No Acute Distress - Head Exam Head Exam: NORMAL INSPECTION - Eye Exam Pupil Exam: PERRL - Neurological Exam Neuro motor strength exam: Left Upper Extremity: 5, Right Upper Extremity: 4, Left Lower Extremity: 5, Right Lower Extremity: 4 Additional comments: Alert, oriented, follows commands with slight weakness noted in her right side. Assessment and Plan (1) Ischemic stroke Assessment & Plan: Case discussed with Dr. Metzger, continue all current medical, physical, and occupational therapies. Recommend blood pressure, glycemic control, maintain head of bed elevated at least 30 degrees. Recommend for rehab for discharge planning, cardiology ( to monitor pulmonary hypertension and tricuspid regurgitation) which can be done as an outpatient. Recommend to follow up with an outpatient neurologist, if patient would like to see Dr. Cisneros at [address] [facility] [address] [place] [id number], tel. [phone]. Status: Acute
--- NOTE | 2017-11-22 01:01 | PN ---
DATE: 11/21/2017 SUBJECTIVE: This 82-year-old female remains hospitalized status post a TIA with right hand and arm weakness, now improved, and comorbidities of obesity, insomnia, hyperlipidemia, hypertension, old TIAs and strokes, and degenerative arthritis. The patient was found to have evidence of lacunar infarcts that were old on her brain MRI and a small PFO on her 2-D echocardiogram. She is awaiting a Cardiology evaluation by Dr. Yadiel Cabrera from Cardiology. PHYSICAL EXAMINATION: VITAL SIGNS: At present remains in a sinus rhythm on the cafeteria monitor with temperature 98.3, respirations 20, pulse 50, and blood pressure 125/46. Her pulse ox is 94% on room air. HEENT: Head: Normocephalic, atraumatic. Eyes: No icterus. Ears: Clear. Throat: Noninjected. NECK: Supple. HEART: Was regular S1, S2. LUNGS: Clear. ABDOMEN: Soft. EXTREMITIES: No edema. SKIN: No rash. VASCULAR: Legs warm to touch. PSYCHOLOGICAL: Alert and oriented x3. NEUROLOGICAL: Grossly intact at present. LABORATORY DATA: White count 9500, hemoglobin 13.1, hematocrit 39.9, platelets 225,000. PT/INR 1, PTT 28. Sodium 141, K 4.7, chloride 108, bicarb 22, BUN 18, creatinine 0.8, random blood sugar 116. Hemoglobin A1c 6.4. All liver function testing was normal including bilirubin 0.6, AST 18, ALT 20, and alk phos 77. Troponin was less than 0.01. Cholesterol 153, triglycerides 130, LDL 69, HDL 61. T4 normal at 10.3. IMPRESSION AND PLAN: An 82-year-old female with a transient ischemic attack; history of old lacunar infarct secondary to a history of previously accelerated hypertension, uncontrolled; now with a small patent foramen ovale on her cardiac echo; chronic insomnia; hyperlipidemia; hypertension, controlled; and degenerative arthritis. As discussed with the patient, we will discuss adjustment of anticoagulation with Dr. Yadiel Cabrera. She will continue on Ambien 5 mg p.o. at bedtime p.r.n. insomnia, Ecotrin 81 mg p.o. daily, Lipitor 40 mg at bedtime, Lopressor 25 mg b.i.d., Norvasc 5 mg p.o. daily, Plavix 75 mg p.o. daily. A heart-healthy soft bland diet and physical therapy for reconditioning and gait training with neuro checks every shift. Ultimate plan will be for discharge to home and for patient to monitor cautiously as an outpatient. All of the above was discussed in detail with the patient, nursing, Neurology, and greater than 35 minutes was spent in the care management, review of labs, orders, and x-rays with the patient. All questions were answered. Shayla Elliott MD
[2017-11-22 06:20] VITALS: O2SAT 98
--- NOTE | 2017-11-22 11:39 | DS ---
SUBJECTIVE: This 82-year-old female remains hospitalized, status post TIA with presentation of right hand and forearm weakness and numbness. I discussed this case in detail with Dr. Yadiel Cabrera from Cardiology this morning. The patient was noted to have a small PFO on recent 2-D echocardiogram. This raises the question whether or not the patient is having an embolic issue to her brain and as to the correct anticoagulation choice. As discussed with Dr. Cabrera, she will be scheduled for RANDELL with Dr. Lr within the next 48 hours and I have asked the nursing staff to place a call to Neurology to see if Pradaxa 150 mg p.o. b.i.d. is an acceptable anticoagulation choice for this patient at present. Of note, she is currently receiving Ecotrin 81 mg p.o. daily along with Plavix 75 mg p.o. daily, but it is Dr. Cabrera's opinion that Pradaxa may be a better choice given her clinical issues. PHYSICAL EXAMINATION: VITAL SIGNS: She is in normal sinus rhythm with a temperature of 97.3, respirations 20, pulse 74 and blood pressure 169/80 and pulse ox 98% on room air. HEENT: Head normocephalic, atraumatic. Eyes: No icterus. Ears: Clear. Throat noninjected. NECK: Supple. HEART: Regular S1, S2. LUNGS: Clear. ABDOMEN: Soft. No rebound, no guarding. EXTREMITIES: No clubbing, no cyanosis, no edema. SKIN: No rash. VASCULAR: Legs are warm to touch. PSYCHOLOGICAL: Alert and oriented x3. NEUROLOGICAL: Grossly intact at present. IMPRESSION: An 82-year-old female with history of lacunar infarct and strokes in her past, now with transient ischemic attack with right hand and arm numbness and weakness, now improved and comorbidities of obesity, chronic insomnia, stable hypertension, hyperlipidemia, degenerative arthritis. PLAN: At present is to maintain the patient on the cardiac yo while scheduling her for RANDELL and continuing Ambien 5 mg p.o. at bedtime p.r.n. insomnia, Pradaxa 150 mg p.o. b.i.d. if okay with Neurology, Lipitor 40 mg p.o. at bedtime, Lopressor 25 mg p.o. b.i.d. and Norvasc will be increased to 10 mg p.o. daily given recent hypertension. She will continue on heart-healthy, soft bland diet. She is scheduled for physical and occupational therapy and additional testing and workup will be entertained based on clinical progress. Greater than 35 minutes was spent in the care management, review of labs, orders, x-rays and discussion of this case with Dr. Cabrera from Cardiology and Nursing. All questions were answered. Shayla Elliott MD MTDTee
--- NOTE | 2017-11-22 11:44 | CP.PCM.PN ---
Subjective - Date & Time of Evaluation Date of Evaluation: 11/22/17 Time of Evaluation: 11:44 - Subjective Subjective: Ms. Mandel was seen and examined at the bedside. She is alert, oriented in all spheres. She denies any headache, dizziness, lightheadedness. She is able to follow simple commands with right side slightly weaker than the left but lower extremities are of the same strength.She is able to transfer herself from bed to bedside chair and claims of ambulating well around the unit. She is excited for a possible discharge today. Objective - Vital Signs/Intake and Output Vital Signs (last 24 hours): Temp Pulse Resp BP Pulse Ox 97.3 F L 64 20 169/80 H 98 11/22/17 06:00 11/22/17 10:00 11/22/17 06:00 11/22/17 09:27 11/22/17 06:00 Intake and Output: 11/22/17 11/22/17 06:59 18:59 Intake Total 360 Output Total 0 Balance 360 - Medications Medications: Current Medications Amlodipine Besylate (Norvasc) 10 mg PO DAILY [facility] Aspirin (Aspirin Chewable) 81 mg PO DAILY [facility] Last Admin: 11/22/17 09:22 Dose: 81 mg Atorvastatin Calcium (Lipitor) 40 mg PO HS [facility] Last Admin: 11/21/17 22:12 Dose: 40 mg Clopidogrel Bisulfate (Plavix) 75 mg PO DAILY [facility] Last Admin: 11/22/17 09:22 Dose: 75 mg Metoprolol Tartrate (Lopressor) 25 mg PO BID [facility] Last Admin: 11/22/17 09:24 Dose: 25 mg Zolpidem Tartrate (Ambien) 5 mg PO HS PRN; Protocol PRN Reason: Insomnia Last Admin: 11/21/17 22:11 Dose: 5 mg - Labs Labs: PT 11.5 SECONDS (9.4-12.5) 11/19/17 12:00 INR 1.00 (0.93-1.08) 11/19/17 12:00 APTT 28.0 Seconds (25.1-36.5) 11/19/17 12:00 - Constitutional Appears: No Acute Distress - Head Exam Head Exam: NORMAL INSPECTION - Eye Exam Pupil Exam: PERRL - Neurological Exam Neurological Exam: Alert, Awake, Oriented x3 Neuro motor strength exam: Left Upper Extremity: 5, Right Upper Extremity: 4, Left Lower Extremity: 5, Right Lower Extremity: 5 Additional comments: Neurological unchanged from previous examination. Assessment and Plan (1) Ischemic stroke Assessment & Plan: Case discussed with Dr. Metzger, continue all current medical, physical, and occupational therapies. Recommend blood pressure, glycemic control, maintain head of bed elevated at least 30 degrees. Recommend for rehab for discharge planning, cardiology ( to monitor pulmonary hypertension and tricuspid regurgitation) which can be done as an outpatient. Recommend to follow up with an outpatient neurologist, patient preferred to see an neurologist in [place]. She is going to follow up with Dr. Alford. Status: Acute
[2017-11-22 12:13] VITALS: BP 175/72; PULSE 49; RESP 21; TEMP 97.1
--- NOTE | 2017-11-22 18:55 | CON ---
DATE: 11/22/2017 INDICATIONS: Recent stroke. HISTORY OF PRESENT ILLNESS: This is an 82-year-old woman well known to me with coronary artery disease and remote coronary stent, admitted on 11/19/2017 with sudden onset of weakness of the right hand with numbness of the right hand and distal forearm. She has undergone evaluation. There is evidence of lacunes and a PFO seen on echocardiogram. She continues to have mild weakness of the right hand. There is no chest pain, shortness of breath, orthopnea, PMD, syncope, presyncope, lightheadedness, dizziness, palpitations, edema, claudication, fever, chills, cough, sputum production, hemoptysis, abdominal pain, nausea, vomiting, diarrhea, constipation, or melena. PAST MEDICAL HISTORY: Notable for coronary artery disease with remote coronary intervention in 2010. She has had TIAs in the past. She has a history of hypertension, hyperlipidemia, pneumonia, hip and knee replacements, chronic back pain, undergoing physical therapy. She is a former smoker. MEDICATIONS: At the time of admission, included aspirin, meclizine, metoprolol, Norvasc, simvastatin. Her current medications include Ambien, aspirin, Lipitor, metoprolol, Norvasc, and Plavix. ALLERGIES: SHE NOTES AN ALLERGY TO MORPHINE. SOCIAL HISTORY: She is a nonsmoker. She does not drink alcohol significantly. She lives at home. She is ambulatory. FAMILY HISTORY: Noncontributory. REVIEW OF SYSTEMS: A 10-point review of systems otherwise unremarkable except as noted above. PHYSICAL EXAMINATION: GENERAL: She is a well-developed woman sitting in a chair on telemetry, in no acute distress. VITAL SIGNS: Telemetry shows sinus bradycardia. She is afebrile. Heart rate 49, blood pressure 148/70, respirations 20, O2 saturation 94%-98% on room air and nasal cannula. HEENT: Reveals no neck vein distention. No thyromegaly. No carotid bruit appreciated. Mucous membranes moist. Conjunctivae pink. NECK: Supple. LUNGS: Schwarz clear. HEART: Reveals normal first and second heart sounds. No murmur, gallop, rub, or click. ABDOMEN: Soft, obese, benign. Bowel sounds present. No mass, organomegaly, tenderness, rebound, guarding, CVA tenderness, or palpable abdominal aortic aneurysm. EXTREMITIES: Revealed no cyanosis or clubbing. There is a chronic lower extremity nonpitting edema. NEUROLOGIC: She is awake, alert, and oriented. PSYCHIATRIC: Normal as to mood and affect. SKIN: Warm and dry. No rash or cellulitis. LABORATORY AND IMAGING DATA: EKG demonstrates sinus bradycardia with APCs, left axis deviation, poor R-wave progression, nonspecific ST-wave changes. A portable chest x-ray was read as no active disease. A CT of the head was unremarkable. Head and neck CTA was unremarkable, see report. MRI of the brain revealed no acute intracranial hemorrhage. There were a few tiny acute/subacute infarcts superior frontoparietal cortex as described. There are moderate chronic white matter ischemic changes with a few scattered small chronic bilateral basal nuclei lacunar type infarcts, see report. CBC is unremarkable. PT, INR, PTT unremarkable. Electrolytes: BUN, creatinine, blood sugar unremarkable. A1c is 6.4. LFTs were unremarkable. Troponin less than 0.01. Total cholesterol 153. Triglycerides 130, LDL 69, HDL 61. T4 is 10.3. IMPRESSION AND PLAN: Suzie Mandel is an 82-year-old woman who presents with right arm and hand symptoms and evidence of lacunar infarcts as described on the MRA of the brain. An echocardiogram apparently shows evidence of patent foramen ovale with [id number] shunting documented by Doppler. I will review this study. She has been seen by Neurology. She is on aspirin and Plavix. The question of anticoagulation has been raised. I will discuss this with Dr. Elliott and Neurology and may recommend a RANDELL to further delineate the presence of a patent foramen ovale and shunting. There has been no evidence of atrial fibrillation on telemetry, but it is possible she has occult episodes of paroxysmal atrial fibrillation resulting in embolic episodes. I will follow along with you and discuss her case further with you. Yadiel Cabrera MD
== END 2017-11-22 14:51 | disposition home or self-care (01) | DRG 69 ==
LOC: ED 10:01 → ERH 11:43 → 2RNO 15:49
PROVIDERS: ADMIT Internal Medicine; ATTEND Internal Medicine
DX: G45.9 Transient cerebral ischemic attack, unspecified (principal); Z68.41 Body mass index [BMI] 40.0-44.9, adult; Q21.1 Atrial septal defect; I10 Essential (primary) hypertension; I25.10 Atherosclerotic heart disease of native coronary artery without angina pectoris; E78.5 Hyperlipidemia, unspecified; I27.20 Pulmonary hypertension, unspecified; G89.29 Other chronic pain; M54.5 Low back pain; R29.701 NIHSS score 1; F17.210 Nicotine dependence, cigarettes, uncomplicated; E66.9 Obesity, unspecified; I36.1 Nonrheumatic tricuspid (valve) insufficiency; F51.04 Psychophysiologic insomnia; Z86.73 Personal history of transient ischemic attack (TIA), and cerebral infarction without residual deficits; Z96.653 Presence of artificial knee joint, bilateral; Z96.643 Presence of artificial hip joint, bilateral; Z95.5 Presence of coronary angioplasty implant and graft

== ENCOUNTER 2017-12-08 09:53 | Day surgery (SDC) | payer MEDICARE, BC ==
[2017-12-06 08:36] VITALS: BMI 41.1
[2017-12-08 10:28] VITALS: RESP 20
[2017-12-08] MEDS ORDERED: Midazolam 2 MG/2 ML VIAL ONE (11:07)
[2017-12-08] MEDS ORDERED: Naloxone 0.4 mg/ml Inj (Adult) ONE (11:08)
[2017-12-08] MEDS ORDERED: Flumazenil 0.1 mg/ml Inj (5ml) IVP ONE (11:08)
[2017-12-08] MEDS ORDERED: Midazolam 2 MG/2 ML VIAL IV ONE ×2 (11:28→11:33)
[2017-12-08 12:12] VITALS: TEMP 98
[2017-12-08 13:32] VITALS: BP 143/56; PULSE 52; O2SAT 98
== END 2017-12-08 13:45 | disposition home or self-care (01) ==
LOC: TEE 09:53
PROVIDERS: ATTEND Internal Medicine Cardiovascular Disease
DX: I11.9 Hypertensive heart disease without heart failure (principal); Z86.73 Personal history of transient ischemic attack (TIA), and cerebral infarction without residual deficits
CPT/HCPCS: 93312; J2250; J3010; J7040